=== PATIENT | female | born 1995 | race Caucasian/White ===

== ENCOUNTER 2020-06-09 08:40 | Inpatient (IN) | payer MEDICAID, SELFPAY ==
[~2020-06-09] VITALS: Ht 152.4 cm; Wt 79.4 kg
[2020-06-09] MEDS ORDERED: FERR325E14 PO (09:15)
[2020-06-09] MEDS ORDERED: PNV91TAB8 PO (09:15)
[2020-06-09 10:00] VITALS: BP 130/81
[2020-06-09] MEDS ORDERED: LACTATED RINGERS 1,000 ML IV SCH (12:15)
[2020-06-09 12:44] LABS: APPEARANCE,URINE CLEAR (CLEAR); BILIRUBIN,URINE NEGATIVE (NEGATIVE); BLOOD, URINE 1+ (NEGATIVE); COLOR,URINE YELLOW (YELLOW); LEUKOCYTE ESTERASE ,URINE NEGATIVE (NEGATIVE); NITRITE, URINE NEGATIVE (NEGATIVE); PH,URINE 6.5 (5.0-9.0); UGLUCOSE NEGATIVE (NEGATIVE)
[2020-06-09 12:58] LABS: BASOPHILS % (AUTO) 0.6 % (0.0-2.0); EOSINOPHILS # (AUTO) 0.1 K/uL (0-0.4); EOSINOPHILS % (AUTO) 1.5 % (0.0-4.0); HEMATOCRIT 32.7 % (36-48); HEMOGLOBIN 11.1 g/dL (12.0-16.0); LYMPHOCYTES # (AUTO) 1.3 K/uL (2.5-16.5); LYMPHOCYTES % (AUTO) 21.9 % (20.5-51.1); MEAN CORPUSCULAR HEMOGLOBIN 29 pg (27-31); MEAN CORPUSCULAR HGB CONC 34 g/dL (33-37); MEAN CORPUSCULAR VOLUME 86.8 fL (80-94); MONOCYTES # (AUTO) 0.3 K/uL (0.8-1.0); MONOCYTES % (AUTO) 5.1 % (1.7-9.3); NEUTROPHILS # (AUTO) 4.1 K/uL (1.8-7.7); NEUTROPHILS % (AUTO) 70.9 % (42.2-75.2); PLATELET COUNT (AUTO) 118 K/uL (140-450); RED BLOOD CELL COUNT(AUTO) 3.76 MIL/uL (4.20-5.40); RED CELL DISTRIBUTION WIDTH 14.1 % (11.6-13.7); WHITE BLOOD COUNT (AUTO) 5.8 K/uL (4.8-10.8)
[2020-06-09 12:59] LABS: RBC,URINE 0-5 /HPF (0-5); WBC,URINE 0-5 /HPF (0-5)
[2020-06-09 13:00] LABS: ALBUMIN 2.6 g/dL (3.4-5.0); ANION GAP 17.9 (8-16); CARBON DIOXIDE 18.7 mmol/L (21-32); CREATININE 0.6 mg/dL (0.6-1.3); POTASSIUM 3.6 mmol/L (3.5-5.1); TOTAL BILIRUBIN 0.3 mg/dL (0.0-1.0)
[2020-06-09] MEDS ORDERED: LIDOCAINE MPF 1% 10 MG/ML VIAL INJ SCH (21:55)
[2020-06-09] MEDS ORDERED: METHYLERGONOVINE 0.2 MG/ML AMP IM SCH (21:55)
[2020-06-09] MEDS ORDERED: OXYTOCIN 20 UNITS in LACTATED RINGERS 1,000 ML IM SCH (21:55)
[2020-06-09] MEDS ORDERED: OXYTOCIN 20 UNITS/LR PREMIX 1,000 ML IV ONE (22:17)
[2020-06-09] MEDS ORDERED: ROPIVACAINE 0.2%/NS PREMIX 200 ML EPI ONE (22:43)
[2020-06-10] MEDS ORDERED: fentaNYL citrate 0.05 MG/ML VIAL ONE (06:51)
--- NOTE | 2020-06-10 08:07 | NUR ---
PATIENT HAS BEEN SCREENED AND CATEGORIZED LOW NUTRITION RISK. PATIENT WILL BE SEEN WITHIN 7 DAYS OF ADMISSION. 06/16/[address]
[2020-06-10] MEDS ORDERED: IBUPROFEN 800 MG TAB PO PRN (10:55)
[2020-06-10] MEDS ORDERED: SODIUM PHOSPHATE 118 ML ENEM RC PRN (10:55)
[2020-06-10] MEDS ORDERED: bisacodyL 10 MG SUPP RC PRN (10:55)
[2020-06-10] MEDS ORDERED: BENZOCAINE/MENTHOL 20%-0.5% 60 GM CAN TP PRN (10:55)
[2020-06-10] MEDS ORDERED: OXYTOCIN 10 UNITS/ML VIAL IM PRN (10:55)
[2020-06-10] MEDS ORDERED: METHYLERGONOVINE 0.2 MG/ML AMP IM PRN (10:55)
[2020-06-10] MEDS ORDERED: METHYLERGONOVINE 0.2 MG TAB PO PRN (10:55)
[2020-06-10] MEDS: oxyCODONE/APAP 5/325 MG 1 TAB TAB PO PRN (12:58)
[2020-06-10] MEDS ORDERED: DOCUSATE SOD/SENNA 50/8.6 MG 1 TAB PO SCH (21:00)
[2020-06-10] MEDS ORDERED: TEMAZEPAM 15 MG CAP PO PRN (21:00)
[2020-06-11] MEDS: oxyCODONE/APAP 5/325 MG 1 TAB TAB PO PRN (04:13)
[2020-06-11 05:51] LABS: HEMATOCRIT 30.2 % (36-48); HEMOGLOBIN 10.1 g/dL (12.0-16.0)
[2020-06-11] MEDS ORDERED: FLU VACCINE QS2020-21 0.5 ML SYR IMVAC PRN (21:10)
== END 2020-06-12 13:10 | disposition home or self-care (01) | DRG 560 ==
LOC: MFCC 08:40 → OBSVTOIN 12:17 → MFCC 06-10 13:15
PROVIDERS: ADMIT Obstetrics & Gynecology; ATTEND Obstetrics & Gynecology
PROC: 10D07Z6 Extraction of Products of Conception, Vacuum, Via Natural or Artificial Opening (ICD-10-PCS; principal; 2020-06-10)
PROC: 0UQGXZZ Repair Vagina, External Approach (ICD-10-PCS; 2020-06-10)
PROC: 3E0234Z Introduction of Serum, Toxoid and Vaccine into Muscle, Percutaneous Approach (ICD-10-PCS; 2020-06-10)
PROC: 3E0R3BZ Introduction of Anesthetic Agent into Spinal Canal, Percutaneous Approach (ICD-10-PCS; 2020-06-10)
PROC: 00HU33Z Insertion of Infusion Device into Spinal Canal, Percutaneous Approach (ICD-10-PCS; 2020-06-10)
PROC: 3E02340 Introduction of Influenza Vaccine into Muscle, Percutaneous Approach (ICD-10-PCS; 2020-06-11)
DX: O69.1XX0 Labor and delivery complicated by cord around neck, with compression, not applicable or unspecified (principal); O71.4 Obstetric high vaginal laceration alone; Z20.828 Contact with and (suspected) exposure to other viral communicable diseases; O99.214 Obesity complicating childbirth; E66.9 Obesity, unspecified; Z3A.39 39 weeks gestation of pregnancy; Z37.0 Single live birth; Z23 Encounter for immunization
CPT/HCPCS: 36415; 51702; 80053; 81001; 85018; 85025; 86592; 86886; 86900; 86901; 90715; G0378; J2590; J2795; J3010; J7120

== ENCOUNTER 2022-12-15 12:52 | Observation (INO) | payer OTHER ==
[~2022-12-15] VITALS: Ht 152.4 cm; Wt 76.2 kg
[~2022-12-15 12:52] MED LIST: FERR325E14 PO; PNV91TAB8 PO
== END 2022-12-15 15:20 | disposition home or self-care (01) ==
LOC: MFCC 12:52
PROVIDERS: ADMIT Obstetrics & Gynecology; ATTEND Obstetrics & Gynecology
DX: O62.9 Abnormality of forces of labor, unspecified (principal); Z20.822 Contact with and (suspected) exposure to COVID-19; Z3A.39 39 weeks gestation of pregnancy
CPT/HCPCS: 87426; G0378